=== PATIENT | female | born 1935 | race Caucasian/White ===

== ENCOUNTER 2016-09-08 10:51 | Inpatient (IN) | payer MEDICARE, MEDICAID ==
[~2016-09-08 10:51] MED LIST: ADULT ASPIRIN81 MG; ALBUTEROL SULF8.5 G2 IH; ARTIFICIAL TEAR15 M8 OP; ASPIRIN EC81 MG PO; ASPIRIN325 MG PO; BABY ASPIRIN81 MG PO; CALCIUM 600 +1 EA17 PO; CALCIUM 600 +1 EAC5 PO; CALCIUM CARBON600 M2 PO; CALCIUM WITH VI1 TAB; CLINDAMYCIN HC300 M1 PO; CLINORIL200 MG; CLINORIL200 MG PO; COMPAZINE10 M PO; COUMADIN5 MG PO; DARVOCET-N 1001 TAB; DOC-Q-LACE100 M1 PO; DOC-Q-LACE100 M2 PO; FERROUS SU325 ( 65 ) PO; FERROUS SULFAT325 M1 PO; FUROSEMIDE20 M1 PO; GENTEAL TEARS 015 ML EACH EYE; GENTEAL25 ML BOTH EYES; GUAIFEN-CODEIN120 ML PO; HYDROCHLOROTH12.5 M1 PO; HYDROCODON-ACE1 EACH PO; IMODIUM A-D2 M3 PO; IMODIUM MS REL1 EAC1 PO; KEFLEX500 M2 PO; LASIX20 M1 PO; LASIX20 MG PO; LASIX40 M1 PO; LASIX40 MG; LISINOPRIL10 M1 PO; LOVENOX150 MG/ML SQ; MOBIC15 M2 PO; MULTIVITAMIN1 TAB; MULTIVITAMIN1 TAB PO; MULTIVITAMINS1 EAC7 PO; NORCO 5/325 TAB1 TAB PO; NORCO 5/3251 TAB PO; NORCO 7.5/325 T1 TAB PO; NORVASC5 M2 PO; NYSTOP60 GM TP; OCUVITE TABLET1 EACH PO; OCUVITE TABLET1 TAB; OCUVITE WITH L1 EACH PO; OMEPRAZOLE20 M3 PO; OS-CAL 500+D T1 EACH PO; PRAVACHOL20 M1 PO; PRAVACHOL20 MG; PRAVACHOL20 MG PO; PRILOSEC40 MG; PRILOSEC40 MG PO; PRINIVIL10 MG PO; PRINIVIL5 M1 PO; PROCHLORPERAZIN10 MG PO; ROXICODONE5 M2 PO; SPIRONOLACTONE25 M1 PO; SULINDAC PO; TOPROL XL25 M1 PO; TYLENOL SU650 MG/SU1 PR; TYLENOL325 M2 PO; TYLENOL325 MG PO; ULTRAM50 M1 PO; ULTRAM50 MG PO; VISION FORMULA PO; VITAMIN D35000 UNI2 PO; VITAMIN D5000 UNIT PO
[2016-09-08 11:56] LABS: PROTHROMBIN TIME 11.1 SECONDS (9.0-13.6)
[2016-09-08 20:27] LABS: BASO % 0.5 % (0-2); BASO ABSOLUTE COUNT 0.1 tho/cmm (0.0-0.2); EOS % 2.6 % (0-7); EOSINOPHIL ABSOLUTE COUNT 0.3 tho/cmm (0.0-0.7); HCT-HEMATOCRIT 39.5 % (34.0-49.0); HGB-HEMOGLOBIN 12.6 gm/dl (12.0-15.5); IMMATURE GRANULOCYTES ABSOLUTE 0.01 tho/cmm (0-0.03); IMMATURE GRANULOCYTES PERCENT 0.1 % (0-0.3); LYMPH % 31.3 % (20-45); LYMPH ABSOLUTE COUNT 3.1 tho/cmm (0.8-4.5); MCH (MEAN CORPUSCULAR HGB) 28.3 pg (28.0-32.0); MCHC MEAN CORPUSCULAR HGB CONC 31.9 % (32.0-36.0); MCV (MEAN CELL VOLUME) 88.8 fl (82.0-96.0); MEAN PLATELET VOLUME 10.7 cmc (9.4-12.4); MONO % 4.5 % (0-12); MONOCYTE ABSOLUTE COUNT 0.5 tho/cmm (0.0-1.2); NEUTROPHIL ABSOLUTE COUNT 6.1 tho/cmm (1.6-8.0); NEUTROPHIL-AUTOMATED 6.1 tho/cmm (1.6-8.0); PLATELET COUNT 252 tho/cmm (150-450); RED BLOOD COUNT 4.45 mil/cmm (4.00-5.20)
[2016-09-08 20:40] LABS: ANION GAP 9 mmol/L (0-20); BLOOD UREA NITROGEN 24 mg/dl (6-24); CALCIUM 8.7 mg/dl (8.5-10.5); CARBON DIOXIDE-VENOUS 33 mmol/L (22-32); CHLORIDE 105 mmol/l (96-110); CREATININE 1.12 mg/dl (0.50-1.10); GLUCOSE 91 mg/dL (70-110); POTASSIUM 3.9 mmol/L (3.7-5.1); SODIUM 143 mmol/L (135-145); eGFR VALUE FOR BLACK 53 mL/Min
[2016-09-09 05:48] LABS: BASO % 0.1 % (0-2); IMMATURE GRANULOCYTES ABSOLUTE 0.03 tho/cmm (0-0.03); IMMATURE GRANULOCYTES PERCENT 0.2 % (0-0.3); LYMPH % 10.1 % (20-45); LYMPH ABSOLUTE COUNT 1.4 tho/cmm (0.8-4.5); MEAN PLATELET VOLUME 10.5 cmc (9.4-12.4); MONO % 6.3 % (0-12); MONOCYTE ABSOLUTE COUNT 0.9 tho/cmm (0.0-1.2); NEUTROPHIL ABSOLUTE COUNT 11.4 tho/cmm (1.6-8.0); NEUTROPHIL-AUTOMATED 11.4 tho/cmm (1.6-8.0); NEUTROPHILS % 83.3 % (40-80); PLATELET COUNT 209 tho/cmm (150-450); RED BLOOD COUNT 3.07 mil/cmm (4.00-5.20); RED CELL DISTRIBUTION WIDTH 13.9 % (12.4-16.4); WHITE BLOOD COUNT 13.7 tho/cmm (4.0-10.0)
[2016-09-09 05:52] LABS: HCT-HEMATOCRIT 26.7 % (34.0-49.0); HGB-HEMOGLOBIN 8.6 gm/dl (12.0-15.5); MCHC MEAN CORPUSCULAR HGB CONC 32.2 % (32.0-36.0)
[2016-09-09 06:02] LABS: ANION GAP 12 mmol/L (0-20); BLOOD UREA NITROGEN 29 mg/dl (6-24); CARBON DIOXIDE-VENOUS 28 mmol/L (22-32); CHLORIDE 106 mmol/l (96-110); CREATININE 1.24 mg/dl (0.50-1.10); POTASSIUM 4.7 mmol/L (3.7-5.1); SODIUM 141 mmol/L (135-145); eGFR VALUE FOR BLACK 47 mL/Min
[2016-09-09 06:08] LABS: GLUCOSE 159 mg/dL (70-110)
[2016-09-10 06:22] LABS: BASO % 0.2 % (0-2); EOS % 0.2 % (0-7); HCT-HEMATOCRIT 25.7 % (34.0-49.0); HGB-HEMOGLOBIN 8.3 gm/dl (12.0-15.5); IMMATURE GRANULOCYTES ABSOLUTE 0.04 tho/cmm (0-0.03); IMMATURE GRANULOCYTES PERCENT 0.3 % (0-0.3); LYMPH % 15.4 % (20-45); MCH (MEAN CORPUSCULAR HGB) 28.1 pg (28.0-32.0); MCHC MEAN CORPUSCULAR HGB CONC 32.3 % (32.0-36.0); MCV (MEAN CELL VOLUME) 87.1 fl (82.0-96.0); MEAN PLATELET VOLUME 10.4 cmc (9.4-12.4); MONO % 8.5 % (0-12); MONOCYTE ABSOLUTE COUNT 1.1 tho/cmm (0.0-1.2); NEUTROPHIL ABSOLUTE COUNT 9.5 tho/cmm (1.6-8.0); NEUTROPHIL-AUTOMATED 9.5 tho/cmm (1.6-8.0); NEUTROPHILS % 75.4 % (40-80); PLATELET COUNT 186 tho/cmm (150-450); RED BLOOD COUNT 2.95 mil/cmm (4.00-5.20); RED CELL DISTRIBUTION WIDTH 14.2 % (12.4-16.4); WHITE BLOOD COUNT 12.6 tho/cmm (4.0-10.0)
[2016-09-10 06:44] LABS: ANION GAP 8 mmol/L (0-20); BLOOD UREA NITROGEN 29 mg/dl (6-24); CARBON DIOXIDE-VENOUS 32 mmol/L (22-32); CHLORIDE 105 mmol/l (96-110); CREATININE 1.09 mg/dl (0.50-1.10); GLUCOSE 116 mg/dL (70-110); POTASSIUM 4.4 mmol/L (3.7-5.1); SODIUM 141 mmol/L (135-145); eGFR VALUE FOR BLACK 55 mL/Min
[2016-09-11 05:47] LABS: BASO % 0.2 % (0-2); EOS % 0.7 % (0-7); EOSINOPHIL ABSOLUTE COUNT 0.1 tho/cmm (0.0-0.7); HCT-HEMATOCRIT 24.2 % (34.0-49.0); HGB-HEMOGLOBIN 7.7 gm/dl (12.0-15.5); IMMATURE GRANULOCYTES ABSOLUTE 0.03 tho/cmm (0-0.03); IMMATURE GRANULOCYTES PERCENT 0.3 % (0-0.3); LYMPH % 17.3 % (20-45); LYMPH ABSOLUTE COUNT 1.8 tho/cmm (0.8-4.5); MCH (MEAN CORPUSCULAR HGB) 28.4 pg (28.0-32.0); MCHC MEAN CORPUSCULAR HGB CONC 31.8 % (32.0-36.0); MCV (MEAN CELL VOLUME) 89.3 fl (82.0-96.0); MEAN PLATELET VOLUME 10.6 cmc (9.4-12.4); MONO % 9.8 % (0-12); NEUTROPHIL ABSOLUTE COUNT 7.3 tho/cmm (1.6-8.0); NEUTROPHIL-AUTOMATED 7.3 tho/cmm (1.6-8.0); NEUTROPHILS % 71.7 % (40-80); PLATELET COUNT 178 tho/cmm (150-450); RED BLOOD COUNT 2.71 mil/cmm (4.00-5.20); RED CELL DISTRIBUTION WIDTH 14.3 % (12.4-16.4); WHITE BLOOD COUNT 10.2 tho/cmm (4.0-10.0)
[2016-09-11] MEDS ORDERED: ASPIRIN EC325 M1 PO (10:23)
[2016-09-11] MEDS ORDERED: ROXICODONE5 M2 PO (10:24)
[2016-09-11] MEDS ORDERED: SENOKOT-S TABL1 EACH PO (10:26)
[2016-09-11] MEDS ORDERED: ACETAMINOPHEN650 MG PO (11:09)
[2016-09-11] MEDS ORDERED: ULTRAM50 M1 PO (11:09)
== END 2016-09-11 14:10 | disposition home health service (06) | DRG 467 ==
LOC: SHSC 10:51 → ORE 13:33 → PACU 17:20 → 5EA 18:00
PROVIDERS: Hospitalist; Internal Medicine; Physician Assistant; ADMIT Orthopaedic Surgery
PROC: 0SPD0JZ Removal of Synthetic Substitute from Left Knee Joint, Open Approach (ICD-10-PCS; principal; 2016-09-08)
PROC: 0SRD0J9 Replacement of Left Knee Joint with Synthetic Substitute, Cemented, Open Approach (ICD-10-PCS; principal; 2016-09-08)
DX: T84.033A Mechanical loosening of internal left knee prosthetic joint, initial encounter (principal); D62 Acute posthemorrhagic anemia; I13.0 Hypertensive heart and chronic kidney disease with heart failure and stage 1 through stage 4 chronic kidney disease, or unspecified chronic kidney disease; I50.32 Chronic diastolic (congestive) heart failure; N18.3 Chronic kidney disease, stage 3 (moderate); D72.829 Elevated white blood cell count, unspecified; E78.5 Hyperlipidemia, unspecified; E66.9 Obesity, unspecified; I25.10 Atherosclerotic heart disease of native coronary artery without angina pectoris; E55.9 Vitamin D deficiency, unspecified; K21.9 Gastro-esophageal reflux disease without esophagitis; Y92.9 Unspecified place or not applicable; Y83.8 Other surgical procedures as the cause of abnormal reaction of the patient, or of later complication, without mention of misadventure at the time of the procedure; Z87.891 Personal history of nicotine dependence; Z68.34 Body mass index [BMI] 34.0-34.9, adult; Z96.653 Presence of artificial knee joint, bilateral
CPT/HCPCS: C1713; C9290; J0690; J2270; J3010